=== PATIENT | male | born 1975 | race Caucasian/White ===

== ENCOUNTER → 2019-09-19 07:37 | Outpatient (BNVA) | payer OTHER, SELFPAY | PROVIDERS: PCP Family Medicine; Visit Provider Nurse Practitioner Psychiatric/Mental Health | DX: F33.1 Major depressive disorder, recurrent, moderate (principal); F41.1 Generalized anxiety disorder | CPT/HCPCS: 99214 ==

== ENCOUNTER → 2019-11-01 07:53 | Outpatient (BNVA) | payer BC, SELFPAY | PROVIDERS: PCP Family Medicine; Visit Provider Nurse Practitioner Psychiatric/Mental Health | DX: F33.1 Major depressive disorder, recurrent, moderate (principal); F41.1 Generalized anxiety disorder | CPT/HCPCS: 99213 ==

== ENCOUNTER → 2020-01-24 08:41 | Outpatient (BNVA) | payer BC, SELFPAY | PROVIDERS: PCP Family Medicine; Visit Provider Nurse Practitioner Psychiatric/Mental Health | DX: F33.1 Major depressive disorder, recurrent, moderate (principal); F41.1 Generalized anxiety disorder | CPT/HCPCS: 99213 ==

== ENCOUNTER 2020-02-03 21:54 | Emergency (ER) | payer BC, SELFPAY ==
[2020-02-03 21:54] VITALS: BP 116/81; PULSE 72; RESP 16; TEMP 36.9; O2SAT 97; BMI 28.8
[2020-02-03 22:11] VITALS: BP 116/81; PULSE 72; RESP 16; O2SAT 96
--- NOTE | 2020-02-03 22:25 | ED_ITS ---
HPI - Syncope General: Chief Complaint: Syncope Stated Complaint: syncope Time Seen by Provider: 02/03/20 21:55 History of Present Illness: HPI narrative: 44-year-old male presents with a syncopal episode. His 1-year-old daughter was in the ER, and having a procedure done. He got progressively more hot, began to sweat, and passed out in the room. He was noted to have a heart rate of 37. He recovered quickly. There was no seizure activity. He never complained of any pain. He notes that he is never had any other episodes of syncope. MD complaint: loss of consciousness, felt faint and collapsed Onset (ago): minute(s) -: second(s) Prodromal symptoms: lightheaded and diaphoresis Witnessed: Yes - by Bystander Context: at rest Injuries sustained associated with event: none Associated symptoms: Reports no associated symptoms and nausea; Deny abdominal pain, chest pain, fever(s), headache(s) or vertigo Treatments prior to arrival: none Review of Systems Const: Denies: fever(s) or chills Eyes: Reports: blurry vision ENMT: Denies: swelling of lips/tongue, bleeding gums, post nasal drip or sinus pain Card: Denies: chest pain, palpitations or irregular heart rhythm Resp: Denies: dyspnea, productive cough, non-productive cough or wheezing GI: Reports: nausea; Denies: abdominal pain or vomiting : Denies: difficulty urinating or hematuria Musc: Denies: neck pain, back pain or joint warmth Skin/Breast: Denies: rash or erythema Neuro: Reports: dizziness; Denies: headache(s), vertigo, confusion or seizure-like activity Psych: Denies: anxiety [facility] PFSH: Medical History (Updated 02/03/20 @ 22:40 by Maik Cavazos DO) Generalized anxiety disorder Major depressive disorder, recurrent episode, moderate with anxious distress Physical Exam Const: GENERAL APPEARANCE: well developed ORIENTATION/CONSCIOUSNESS: Yes oriented to person, Yes oriented to place and Yes oriented to time HENMT: COMMON NORMALS: normocephalic, external ears normal and Normal external nose present HEAD & SCALP: normocephalic FACE & SINUS: normal facial exam NOSE: Normal external nose present and No nasal discharge present EXTERNAL EAR: Yes external ears normal MOUTH: tongue normal TEETH & GINGIVA: no abnormal tooth and associated gingiva THROAT: posterior oropharynx normal; no peritonsillar mass Eye: COMMON NORMALS: Equal, round and reactive pupils present, EOMs intact bilaterally and conjunctivae normal EYELID: eyelids normal CONJUNCTIVA: Yes conjunctivae normal PUPIL: Yes Equal, round and reactive pupils present Neck/C-Spine: GENERAL: No tracheal deviation Chest: COMMONS NORMALS: normal inspection of the chest CHEST: No tenderness Resp: COMMON NORMALS: clear to auscultation bilaterally EFFORT & INSPECTION: No tachypneic, No respiratory distress, No retractions, No uses accessory muscles and No tracheal deviation AUSCULTATION: clear to auscultation bilaterally, no rhonchi, no wheezes and lung sounds not diminished Cardio: COMMON NORMALS: regular rate and regular rhythm RATE: regular rate RHYTHM: regular rhythm HEART SOUNDS: no murmurs PERIPHERAL PULSES: radial pulses present GI: INSPECTION: No abdominal distension AUSCULTATION: No Hyperactive bowel sounds present and No Hypoactive bowel sounds present PALPATION: No Guarding due to palpation present (GI) and No Rigid due to palpation PERCUSSION: no dullness to percussion and no tympanic to percussion Neuro: SENSORIUM/ORIENTATION: Yes oriented to person, Yes oriented to place and Yes oriented to time Psych: COMMON NORMALS: mental status grossly normal Skin: COMMON NORMALS: no rashes or lesions noted GENERAL SKIN EXAM: no rashes or lesions noted Course Vital Signs: Vital signs: Vital Signs Temperature 98.4 F 02/03/20 21:54 Pulse Rate 60 02/03/20 22:40 Respiratory Rate 17 02/03/20 22:40 Blood Pressure 112/78 02/03/20 22:40 Pulse Oximetry 99 02/03/20 22:40 MDM - Syncope MDM Narrative: Medical decision making narrative: Episode of what appears to be vasovagal syncope. Potassium is mildly low, which is repleted here. The patient is given a liter of fluid. His other laboratory is benign. He is essentially recovered. His EKG shows a sinus rhythm with a rate of 70 and a normal axis with no ST changes. Lab Data: Labs: Lab Results 02/03/20 02/03/20 Range/Units 22:01 22:01 WBC 10.2 H (4.0-10.0) 10^3/ uL RBC 5.75 H (4.1-5.3) 10^6/u L Hgb 16.7 H (11.7-16.6) g/dL Hct 50.5 (42.0-52.0) % MCV 87.8 (80-94) fL MCH 29.0 (28.0-34.0) pg MCHC 33.1 (30.0-36.0) g/dL RDW 11.9 L (12.1-15.1) % Plt Count 338 (130-400) 10^3/c mm MPV 9.5 (7.4-10.4) fL Neut % (Auto) 44.5 % Lymph % (Auto) 41.2 % Morrill % (Auto) 7.6 % Eos % (Auto) 4.7 % Baso % (Auto) 1.5 % Neut # (Auto) 4.54 (1.8-7.7) 10^3/u L Lymph # (Auto) 4.2 (0.8-4.8) 10^3/u L Morrill # (Auto) 0.8 (0.2-0.9) 10^3/u L Eos # (Auto) 0.5 (0.0-0.8) 10^3/u L Baso # (Auto) 0.2 H (0.0-0.1) 10^3/u L Nucleated RBC % (a uto) 0 % Nucleated RBCs # 0.0 /100WBC Sodium 138 (136-145) mmol/L Potassium 3.3 L (3.5-5.1) mmol/L Chloride 100 (98-107) mmol/L Carbon Dioxide 26 (22-29) mmol/L Anion Gap 15.3 (5-19) BUN 15 (6-20) mg/dL Creatinine 1.1 (0.7-1.2) mg/dL GFR Calculation 72.1 L (90-130) mL/min Glucose 114 (65-115) mg/dL Calculated Osmolal ity 288 (285-295) mOsm/k g Calcium 9.5 (8.5-10.5) mg/dL Total Bilirubin 0.2 (0.15-1.2) mg/dL AST 20 (0-40) U/L ALT 25 (0-41) U/L Alkaline Phosphata se 96 (40-130) IU/L Total Protein 7.2 (6.6-8.7) g/dL Albumin 4.4 (3.5-5.2) g/dL Globulin 2.8 (1.3-4.6) g/dL Discharge Plan Discharge Patient Disposition: Home Clinical Impression: Vasovagal syncope Condition: Stable Prescriptions: No Action cetirizine [Zyrtec] 10 mg tablet 10 mg PO DAILY RF: 0 lisinopril 10 mg tablet 10 mg PO DAILY RF: 0 sildenafil 25 mg tablet 25 mg PO DAILY PRNRF: 0 fluoxetine [Prozac] 40 mg capsule 40 mg PO .morning Qty: 90 RF: 2 fluoxetine [Prozac] 20 mg capsule 20 mg PO .morning Qty: 90 RF: 2 Discharge Orders: Discharge Order (Routine); Ordered 02/03/20 Ordered By: Maik Cavazos Referrals: Sincere Hopper [Primary Care Provider] - 4-7 days Discharge Diet: Advance as tolerated Discharge Activity: Increase activity as tolerated Patient Instructions: Syncope (ED) Activity Restrictions/Additional Instructions: Return for repeated episodes of syncope or passing out, significant chest discomfort, trouble breathing, fever greater than 100, trouble with weakness, speech, etc. Coding Level of Care Code ED Saw Offbearer for Chg Fwd Exam Comprehensive
[2020-02-03 22:40] VITALS: BP 112/78; PULSE 60; RESP 17; O2SAT 99
[2020-02-03 22:50] LABS: Basophils # 0.2 10^3/uL (0.0-0.1); Basophils % 1.5 %; Eosinophils # 0.5 10^3/uL (0.0-0.8); Eosinophils % 4.7 %; Hematocrit 50.5 % (42.0-52.0); Hemoglobin 16.7 g/dL (11.7-16.6); Lymphocytes # 4.2 10^3/uL (0.8-4.8); Lymphocytes % 41.2 %; Mean Corpuscular HGB Conc 33.1 g/dL (30.0-36.0); Mean Corpuscular Volume 87.8 fL (80-94); Mean Platelet Volume 9.5 fL (7.4-10.4); Monocytes # 0.8 10^3/uL (0.2-0.9); Monocytes % 7.6 %; Neutrophils # 4.54 10^3/uL (1.8-7.7); Neutrophils % 44.5 %; Nucleated Red Blood Cells % 0 %; Platelet Count 338 10^3/cmm (130-400); Red Blood Count 5.75 10^6/uL (4.1-5.3); Red Cell Distribution Width 11.9 % (12.1-15.1); White Blood Count 10.2 10^3/uL (4.0-10.0)
[2020-02-03] MEDS: sodium chloride 0.9% 1,000 ML 999 ML IV (22:50)
[2020-02-03 23:01] LABS: Alanine Aminotransferase 25 U/L (0-41); Albumin Level 4.4 g/dL (3.5-5.2); Alkaline Phosphatase 96 IU/L (40-130); Anion Gap 15.3 (5-19); Aspartate Amino Transferase 20 U/L (0-40); Blood Urea Nitrogen 15 mg/dL (6-20); Calcium 9.5 mg/dL (8.5-10.5); Carbon Dioxide 26 mmol/L (22-29); Chloride 100 mmol/L (98-107); Globulin 2.8 g/dL (1.3-4.6); Glomerular Filtration Rate 72.1 mL/min (90-130); Glucose 114 mg/dL (65-115); Osmolality Calculated 288 mOsm/kg (285-295); Potassium 3.3 mmol/L (3.5-5.1); Sodium 138 mmol/L (136-145); Total Bilirubin 0.2 mg/dL (0.15-1.2); Total Protein 7.2 g/dL (6.6-8.7)
[2020-02-03] MEDS: potassium chloride ER 10 mEq Tablet 40 MEQ PO (23:38)
[2020-02-03 23:39] VITALS: BP 107/69; PULSE 82; RESP 16; O2SAT 100
[2020-02-03] MEDS: LORazepam 2 mg/mL INJ 1 mL 1 MG IVP (23:52)
[2020-02-04 00:09] VITALS: BP 110/73; PULSE 68; RESP 17; O2SAT 95
[2020-02-04 00:53] VITALS: BP 115/73; PULSE 101; RESP 16; O2SAT 98
== END 2020-02-04 00:58 | disposition home or self-care (01) ==
PROVIDERS: Emergency Provider Emergency Medicine; PCP Family Medicine
DX: R55 Syncope and collapse (principal)
CPT/HCPCS: 12345; 80053; 85025; 96361; 96374; 96375; 99283; J2060; J7030

== ENCOUNTER → 2020-05-22 10:29 | Outpatient (BNVA) | payer BC, SELFPAY | PROVIDERS: PCP Family Medicine; Visit Provider Nurse Practitioner Psychiatric/Mental Health | DX: F33.1 Major depressive disorder, recurrent, moderate (principal); F41.1 Generalized anxiety disorder | CPT/HCPCS: 99214 ==

== ENCOUNTER → 2020-06-17 08:04 | Outpatient (BNVA) | payer BC, SELFPAY | PROVIDERS: PCP Family Medicine; Visit Provider Nurse Practitioner Psychiatric/Mental Health | DX: F33.1 Major depressive disorder, recurrent, moderate (principal); F41.1 Generalized anxiety disorder; Z79.899 Other long term (current) drug therapy | CPT/HCPCS: 99214 ==

== ENCOUNTER → 2020-07-29 08:30 | Outpatient (BNVA) | payer BC, SELFPAY | PROVIDERS: PCP Family Medicine; Visit Provider Nurse Practitioner Psychiatric/Mental Health | DX: F33.1 Major depressive disorder, recurrent, moderate (principal); F41.1 Generalized anxiety disorder; Z79.899 Other long term (current) drug therapy | CPT/HCPCS: 99214 ==